=== PATIENT | male | born 1990 | race Native Hawaiian/Other Pacific Islander ===

== ENCOUNTER 2017-03-27 16:15 | Emergency (ER) | payer BC ==
[~2017-03-27] VITALS: Ht 170.2 cm; Wt 90.7 kg
== END 2017-03-27 17:59 | disposition home or self-care (01) ==
LOC: ED 16:15
DX: S16.1XXA Strain of muscle, fascia and tendon at neck level, initial encounter (principal); M54.2 Cervicalgia
CPT/HCPCS: 96372; 99283; J1885; J2930

== ENCOUNTER 2017-06-21 06:42 | Outpatient (CLI) | payer BC ==
[2017-06-21] MEDS ORDERED: TRAM50TA PO (07:01)
== END 2017-06-21 06:47 | disposition short-term general hospital (02) ==
LOC: AMB 06:42
DX: R51 Headache (principal)
CPT/HCPCS: A0425; A0429

== ENCOUNTER 2017-06-21 06:52 | Emergency (ER) | payer BC ==
[~2017-06-21] VITALS: Ht 170.2 cm; Wt 90.7 kg
[2017-06-21] MEDS ORDERED: TRAM50TA PO (07:01)
[2017-06-21 09:29] LABS: PLATELET COUNT 183 K/uL (142-355)
[2017-06-21 09:34] LABS: POTASSIUM 3.9 mmol/L (3.6-5.2); SODIUM 137 mmol/L (136-145)
[2017-06-21 10:50] VITALS: BP 120/70; TEMP 98
== END 2017-06-21 10:50 | disposition home or self-care (01) ==
LOC: ED 06:52
PROVIDERS: Emergency Medicine
DX: G43.909 Migraine, unspecified, not intractable, without status migrainosus (principal)
CPT/HCPCS: 36415; 80053; 85027; 85651; 96372; 96374; 99284; J1885; J2175

== ENCOUNTER 2017-09-05 16:10 | Emergency (ER) | payer BC ==
[~2017-09-05] VITALS: Ht 172.7 cm; Wt 92.1 kg
[~2017-09-05 16:10] MED LIST: TRAM50TA PO
[2017-09-05 19:14] VITALS: BP 133/80; TEMP 98.3
== END 2017-09-05 19:16 | disposition home or self-care (01) ==
LOC: ED 16:10
DX: G43.909 Migraine, unspecified, not intractable, without status migrainosus (principal); R11.2 Nausea with vomiting, unspecified
CPT/HCPCS: 99281

== ENCOUNTER 2017-11-10 13:26 | Outpatient (CLI) | payer BC | END 2017-11-10 22:57 | disposition home or self-care (01) | LOC: RAD 13:26 | DX: M54.12 Radiculopathy, cervical region (principal) ==

== ENCOUNTER 2018-02-24 18:21 | Emergency (ER) | payer BC ==
[~2018-02-24] VITALS: Ht 170.2 cm; Wt 95.3 kg
[2018-02-24 18:35] VITALS: TEMP 99
[2018-02-24 19:13] VITALS: BP 124/78
== END 2018-02-24 19:13 | disposition home or self-care (01) ==
LOC: ED 18:21
DX: G43.909 Migraine, unspecified, not intractable, without status migrainosus (principal)
CPT/HCPCS: 96372; 99283; J1885; J2405; J3030

== ENCOUNTER 2018-08-25 19:29 | Emergency (ER) | payer BC ==
[~2018-08-25] VITALS: Ht 170.2 cm; Wt 90.7 kg
[2018-08-25] MEDS ORDERED: MAXALT10 MG PO (19:36)
[2018-08-25] MEDS ORDERED: IBUPROFEN 200200 MG PO (19:36)
[2018-08-25 20:25] VITALS: BP 133/75; TEMP 98.2
== END 2018-08-25 20:25 | disposition home or self-care (01) ==
LOC: ED 19:29
DX: G43.909 Migraine, unspecified, not intractable, without status migrainosus (principal)
CPT/HCPCS: 99283; J2175; J2405

== ENCOUNTER 2018-10-06 16:35 | Emergency (ER) | payer BC ==
[~2018-10-06] VITALS: Ht 170.2 cm; Wt 90.7 kg
[~2018-10-06 16:35] MED LIST changes: +IBUPROFEN 200200 MG PO; +MAXALT10 MG PO
[2018-10-06 17:07] VITALS: TEMP 98.3
[2018-10-06 18:06] LABS: PLATELET COUNT 191 K/uL (142-355)
[2018-10-06 18:13] LABS: POTASSIUM 4.2 mmol/L (3.6-5.2)
[2018-10-06 18:45] VITALS: BP 110/71
== END 2018-10-06 18:45 | disposition home or self-care (01) ==
LOC: ED 16:35
PROVIDERS: Emergency Medicine
DX: G43.909 Migraine, unspecified, not intractable, without status migrainosus (principal)
CPT/HCPCS: 80053; 85027; 96372; 99283; J1885

== ENCOUNTER 2018-10-26 18:52 | Emergency (ER) | payer BC ==
[~2018-10-26] VITALS: Ht 170.2 cm; Wt 88.9 kg
[2018-10-26 21:31] VITALS: BP 138/86; TEMP 97.9
== END 2018-10-26 21:32 | disposition home or self-care (01) ==
LOC: ED 18:52
DX: G43.909 Migraine, unspecified, not intractable, without status migrainosus (principal)
CPT/HCPCS: 96372; 99283; J1885; J2405

== ENCOUNTER 2020-10-19 08:35 | Outpatient (CLI) | payer BC, OTHER | END 2020-10-19 21:11 | disposition home or self-care (01) | LOC: INF 08:35 | PROVIDERS: ATTEND Internal Medicine | DX: Z23 Encounter for immunization (principal) | CPT/HCPCS: 96372 ==

== ENCOUNTER 2020-10-19 17:44 | Emergency (ER) | payer BC ==
[~2020-10-19] VITALS: Ht 170.2 cm; Wt 97.1 kg
[2020-10-19 17:54] VITALS: TEMP 98
[2020-10-19 20:59] VITALS: BP 127/78
== END 2020-10-19 21:08 | disposition home or self-care (01) ==
LOC: ED 17:44
DX: T80.62XA Other serum reaction due to vaccination, initial encounter (principal); T50.B95A Adverse effect of other viral vaccines, initial encounter; R06.02 Shortness of breath; Y92.89 Other specified places as the place of occurrence of the external cause; Z23 Encounter for immunization
CPT/HCPCS: 96372; 99283; J2930

== ENCOUNTER 2020-11-16 07:54 | Outpatient (CLI) | payer BC, OTHER | END 2020-11-16 19:49 | disposition home or self-care (01) | LOC: INF 07:54 | PROVIDERS: ATTEND Internal Medicine | DX: Z23 Encounter for immunization (principal) | CPT/HCPCS: 96372 ==

== ENCOUNTER 2021-05-15 15:26 | Outpatient (CLI) | payer BC | END 2021-05-15 19:05 | disposition home or self-care (01) | LOC: RAD 15:26 | PROVIDERS: ATTEND Registered Nurse | DX: J20.8 Acute bronchitis due to other specified organisms (principal) ==

== ENCOUNTER 2021-09-18 07:08 | Emergency (ER) | payer BC ==
[~2021-09-18] VITALS: Ht 170.2 cm; Wt 90.7 kg
[2021-09-18 07:08] VITALS: TEMP 97.3
[2021-09-18 08:01] VITALS: BP 122/65
== END 2021-09-18 08:45 | disposition home or self-care (01) ==
LOC: ED 07:08
DX: J45.901 Unspecified asthma with (acute) exacerbation (principal)
CPT/HCPCS: 94664; 96372; 99283; J2930

== ENCOUNTER 2022-09-27 05:34 | Emergency (ER) | payer OTHER ==
[~2022-09-27] VITALS: Ht 170.2 cm; Wt 95.3 kg
[2022-09-27 05:40] VITALS: TEMP 100.8
[2022-09-27 06:25] VITALS: BP 130/78
== END 2022-09-27 06:40 | disposition home or self-care (01) ==
LOC: ED 05:34
DX: U07.1 COVID-19 (principal); J10.1 Influenza due to other identified influenza virus with other respiratory manifestations
CPT/HCPCS: 87502; 87635; 87651; 99283; U0003